=== PATIENT | female | born 1945 | race Caucasian/White ===

== ENCOUNTER 2021-01-23 12:45 | Observation (INO) | payer MEDICARE, OTHER, SELFPAY ==
[2021-01-23] VITALS (12 sets, daily range): BP systolic 99–141; BP diastolic 56–100; PULSE 77–115; RESP 15–18; TEMP 36.4–36.7; O2SAT 92–96; BMI 39.9; BMI 40.0; BMI 37.5
--- NOTE | 2021-01-23 12:51 | EKG12_ITS ---
Test Reason : Blood Pressure : / mmHG Vent. Rate : 094 BPM Atrial Rate : 094 BPM P-R Int : 152 ms QRS Dur : 062 ms QT Int : 362 ms P-R-T Axes : 062 000 031 degrees QTc Int : 452 ms Normal sinus rhythm Low Voltage QRS Confirmed by MARYBETH BENJAMIN, NADEGE ([id number]), film or videotape editor MARLENY MCGINNIS ([id number]) on 01/27/2021 8:53:33 AM Referred By: BHAVANA Confirmed By:NADEGE RUEDA MD
--- NOTE | 2021-01-23 12:52 | ED.DCSUM_ITS ---
History of Present Illness Chief Complaint: Chest Pain Informant: Patient Onset: Today Context: Sudden Onset Timing: Continuous Current Severity: Mild Maximum Severity: Moderate Narrative: Patient is a 75-year-old female with history of smoking and hypertension who presents to the emergency department with chest pain. Patient states she was in her normal state of health. 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 She states she turned to talk and had substernal chest heaviness. She states that it seemed to relax on its own, but then she was walking and became very short of breath with more heaviness. She states it radiated to her left shoulder. She does have history of anxiety, but states this felt very different. With anxiety, she states she will usually get palpitations but has never had pain like this. She denies any recent exertional symptoms. She has no documented history of coronary vascular disease. She denies orthopnea or leg edema. Prior similar symptoms: No Recent Illness/Hospitalization: No Past Medical History - Allergies and Home Meds Allergies/Adverse Reactions: Allergies bacitracin [From Neosporin ([id number])] Allergy (Verified 01/23/21 12:56) Rash neomycin [From Neosporin ([id number])] Allergy (Verified 01/23/21 12:56) Rash polymyxin B [From Neosporin ([id number])] Allergy (Verified 01/23/21 12:56) Rash Sulfa (Sulfonamide Antibiotics) Allergy (Verified 01/23/21 12:56) Rash BANDAIDS Allergy (Uncoded 01/23/21 12:56) Rash Prior records reviewed: Yes Past Medical History: - - Hypertension, anxiety Surgical History: noncontributory Review of Systems General: Denies: Chills, Fever, Sweats Eyes: Denies: Visual changes - bilaterally, Diplopia ENT: Denies: Rhinorrhea, Sore throat Cardiovascular: Reports: Chest pain. Denies: Palpitations Respiratory: Reports: Dyspnea, Paroxysmal nocturnal dyspnea. Denies: Cough, Dyspnea on exertion Gastrointestinal: Denies: Abdominal pain, Nausea, Vomiting, Diarrhea, Melena, Hematochezia Genitourinary: Denies: Dysuria, Hematuria, Frequency Musculoskeletal: Denies: Back pain, Extremity Pain Skin: Denies: Rash, Wounds Neurological: Denies: Headache, Weakness, Numbness Physical Exam Vital Signs/Narrative: Vital Signs Temp Pulse Resp BP Pulse Ox 01/23/21 12:46 97.5 F L 115 H 18 131/93 H 94 Inital Vital Signs reviewed: Yes General: Well nourished, Well developed, No Acute Distress Head: Normocephalic, Atraumatic Eyes: Perrl, EOMI ENT: Moist mucous membranes, No rhinorrhea Neck: Supple, Nontender Cardiovascular: Regular rate, Regular rhythm, No murmurs Respiratory: No distress, CTA bilaterally, Chest nontender Abdomen: Soft, Nontender, Nondistended, Normal bowel sounds Back: Nontender, Normal Inspection Extremities: Nontender, No edema Skin: Normal color, No rash Neurological: Alert, Oriented x3, Cranial nerves II-XII grossly intact, Normal Strength, Normal Sensation Psychological: Normal affect, Normal Mood Diagnostic/Tx/Re-eval Clinical Impression(s) from Imaging Studies Chest X-Ray 01/23/21 13:00 IMPRESSION: No acute abnormality is seen. Electronically Signed: Luis A Foreman MD at 13:20 EDT , Service support , Chest CTA 01/23/21 13:33 IMPRESSION: Normal CTA chest examination, without a demonstrated pulmonary embolism or arterial dissection. 2.3 cm x 3 cm hypodense nodule in the left adrenal gland. Electronically Signed: Luis A Foreman MD at 14:22 EDT , Service support , Abnormal Lab Results 01/23/21 01/23/21 01/23/21 12:53 12:53 12:53 WBC 7.7 RBC 5.40 Hgb 15.2 H Hct 47.5 H MCV 88.0 MCH 28.1 MCHC 32.0 RDW Std Deviation 50.8 H RDW Coeff of Joanna 15.8 H Plt Count 255 MPV 11.0 Immature Gran % (Auto) 0.300 Neut % (Auto) 61.3 Lymph % (Auto) 29.6 [place] % (Auto) 6.5 Eos % (Auto) 1.8 Baso % (Auto) 0.5 Absolute Neuts (auto) 4.7 Absolute Lymphs (auto) 2.27 Nucleated RBC % 0 D-Dimer Quant (PE/DVT) Sodium 142 Potassium 4.0 Chloride 110 H Carbon Dioxide 26.0 Anion Gap 6 BUN 15 Creatinine 0.81 Estim Creat Clear Calc 45.98 Est GFR (MDRD) Af Amer 89 Est GFR (MDRD) Non-Af 74 BUN/Creatinine Ratio 18.6 Glucose 112 H Calcium 8.8 Troponin I < 0.015 B-Natriuretic Peptide 12.8 01/23/21 01/23/21 12:53 13:14 WBC RBC Hgb Hct MCV MCH MCHC RDW Std Deviation RDW Coeff of Joanna Plt Count MPV Immature Gran % (Auto) Neut % (Auto) Lymph % (Auto) [place] % (Auto) Eos % (Auto) Baso % (Auto) Absolute Neuts (auto) Absolute Lymphs (auto) Nucleated RBC % D-Dimer Quant (PE/DVT) Cancelled 1.61 H* Sodium Potassium Chloride Carbon Dioxide Anion Gap BUN Creatinine Estim Creat Clear Calc Est GFR (MDRD) Af Amer Est GFR (MDRD) Non-Af BUN/Creatinine Ratio Glucose Calcium Troponin I B-Natriuretic Peptide - Rhythm Strip Rhythm Strip: Sinus Tach Rate: 103 Ectopy: None - EKG Initial EKG Interpretation: No Acute Injury Pattern, Sinus Tachycardia, Non-Specific ST Changes Prior: No Prior - Medical Decision Making Patient presents to the emergency department chest heaviness and shortness of breath. Her symptoms were improved with nitro and fentanyl. She was initially diaphoretic, nauseated, with significant chest tightness. On arrival, she states that it is markedly improved. EKG was obtained. Was sinus tachycardia. There is no acute ischemia. Patient had already received aspirin. She underwent metabolic work-up. Her current initial cardiac enzymes are negative. I did order Nitropaste for chest which seemed to make her more comfortable. Her D-dimer was elevated and with her persistent tachycardia, I did obtain CTA. This was negative for acute process. Given the patient's age and risk factor, along with her concerning story for chest pain, I do feel that she would benefit from admission. The patient has a heart score of 6. She will be admitted at this time. Impression 1. Chest pain
--- NOTE | 2021-01-23 13:00 | RAD_ITS ---
STUDY: X-RAY CHEST REASON FOR EXAM: Female, 75 years old. Chest pain TECHNIQUE: Single AP portable view of the chest. COMPARISON: None. FINDINGS: EKG electrodes are seen. The lungs are clear and expanded. There is no demonstrated pleural abnormality. Normal size heart. Normal mediastinum and fuentes. Normal visualized pulmonary arteries. There is atherosclerotic tortuosity of the aortic arch and descending thoracic aorta. There are diffuse degenerative changes of the visualized thoracic spine. Normal visualized ribs, clavicles, and shoulders. There is no demonstrated abnormality of the visualized soft tissue structures of the upper abdomen. RAD/Chest 1 View (Portable) IMPRESSION: No acute abnormality is seen. Electronically Signed: Luis A Foreman MD at 13:20 EDT , Service support ,
[2021-01-23 13:03] LABS: Absolute Lymphocyte Count 2.27 X10^3/uL (0.83-4.51); Absolute Neutrophil Count 4.7 X10^3/uL (2.0-7.7); Basophil# 0.04 X10^3/uL; Basophil% 0.5 % (0-1); Eosinophil# 0.14 X10^3/uL; Eosinophils% 1.8 % (0-5); Hematocrit 47.5 % (37-47); Hemoglobin 15.2 g/dL (12.0-15.0); Lymphocyte # 2.27 X10^3/ul (0.83-4.51); Lymphocyte % 29.6 % (19-41); Mean Corpuscular Hgb 28.1 pg (27.0-32.0); Monocyte% 6.5 % (0-10); NRBC Flagged by Analyzer 0 % (0-5); Neutrophil % 61.3 % (47-70); Platelet Count 255 K/mm3 (150-450); RBC Distribution Width CV 15.8 % (11.6-14.6); RBC Distribution Width SD 50.8 fl (35.1-43.9); White Blood Count 7.7 K/mm3 (4.4-11.0)
[2021-01-23] MEDS: Nitroglycerin Oint 1 INCH PACKET TRANSDERM. (13:07)
[2021-01-23 13:17] LABS: Anion Gap 6 (5-15); BUN 15 mg/dL (7-18); BUN/Creat Ratio 18.6 RATIO (10-20); Calcium,Total 8.8 mg/dL (8.5-10.1); Chloride 110 mmol/L (98-107); Creatinine, Serum 0.81 mg/dL (0.55-1.02); EST Glomerular Filtration Rate 74 mL/min (>60); Est Glom Filt Rate - Afr Amer 89 mL/min (>60); Estimated Creatinine Clearance 45.98 ml/min; Glucose 112 mg/dL (74-106); Sodium Level 142 mmol/L (136-145)
[2021-01-23 13:27] LABS: BNP,B-Type NATRIURETIC PEPTIDE 12.8 pg/mL (0-100)
[2021-01-23 13:31] LABS: D-Dimer Quantitative (DVT/PE) 1.61 FEU/ug/m (0.27-0.49)
--- NOTE | 2021-01-23 13:33 | CT_ITS ---
STUDY: CTA CHEST REASON FOR EXAM: Female, 75 years old. Chest pain, hypoxia. History of asthma. RADIATION DOSAGE (If Supplied By Facility): CTDIvol = ( 12.39 ) mGy, DLP = ( 463.26 ) mGycm TECHNIQUE: The examination was performed with the intravenous administration of IV 100mL Isovue-370. Post-processing of the angiographic images was performed, with multiplanar reformation and 3D reconstruction. Individualized dose optimization techniques were used for this CT. COMPARISON: None. FINDINGS: Normal enhancement of the main pulmonary artery and right and left pulmonary arteries. Normal enhancement of the bilateral peripheral pulmonary arteries. There is no demonstrated pulmonary embolism. There is atherosclerotic calcification of the aortic arch with tortuosity. There is no demonstrated aortic dissection. There are calcifications of the coronary arteries. Normal mediastinum. Normal hilar regions. Normal visualized trachea and bronchi. The lungs are well expanded. Normal pulmonary parenchyma. Normal pleura. Normal chest wall structures. There are degenerative changes of thoracic spine. There is a 2.3 cm x 3 cm hypodense nodule in the left adrenal gland. This is suggestive of an adrenal adenoma. Small sliding hiatal hernia. CT/CTA Chest W/WO Contrast IMPRESSION: Normal CTA chest examination, without a demonstrated pulmonary embolism or arterial dissection. 2.3 cm x 3 cm hypodense nodule in the left adrenal gland. Electronically Signed: Luis A Foreman MD at 14:22 EDT , Service support ,
[2021-01-23] MEDS: Ondansetron 4 MG/2 ML Vial IV (14:24)
--- NOTE | 2021-01-23 14:49 | PCM.HP.STD ---
Problem List (1) Chest pain Status: Acute (2) Hypertension Status: Chronic History of Present Illness Date of Admission: 01/23/21 Chief Complaint: Chest pain. The patient is a 75 year old F with past medical history as mentioned above presented to the emergency room because of chest pain. Patient stated that she was at the [employer] today, sitting in a chair and started complaining of left-sided chest pain, sudden onset, described initially as needle sensation and it was 9 out of 10 in severity and radiates to her left shoulder. She stood up after she is done and she went to drive her car. She started having chest heaviness on the left side, continued to have needle sensation on the left side of her chest, associated with shortness of breath and nausea. After she arrived to the ED, she received sublingual nitro and her chest pain now is gone. In the emergency department, she was tachycardic, afebrile, other vital signs were stable. Routine blood work was unremarkable. EKG revealed sinus tachycardia with PVCs, no acute ischemic changes. Troponin was negative as well as BNP. Chest x-ray showed no acute findings. D-dimer was elevated so CTA chest done which showed no PE or dissection, no other acute chest findings. CTA chest revealed incidental left adrenal gland nodule. She is being admitted for chest pain for evaluation. Past Medical History Past Medical History (Chronic Problems): Chronic Problems Hypertension (Chronic) Allergies bacitracin [From Neosporin ([id number]-[id number])] Allergy (Verified 01/23/21 12:56) Rash neomycin [From Neosporin (fal-ame-hsoov)] Allergy (Verified 01/23/21 12:56) Rash polymyxin B [From Neosporin (gdq-piq-bewms)] Allergy (Verified 01/23/21 12:56) Rash Sulfa (Sulfonamide Antibiotics) Allergy (Verified 01/23/21 12:56) Rash BANDAIDS Allergy (Uncoded 01/23/21 12:56) Rash Home Medications: Ambulatory Orders Medication Instructions Recorded Amlodipine [Norvasc] 5 mg PO DAILY 01/23/21 Lisinopril [Zestril] 20 mg PO DAILY 01/23/21 Surgical History: total hip arthroplasty, - - section x2. 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 Denies: Light Headedness, Orthopnea, Palpitations, Paroxysmal Noc. Dyspnea, Syncope Respiratory: Reports: Shortness of Breath. Denies: Cough, Hemoptysis, Pleuritic Pain, Sputum production, Wheezing Gastrointestinal: Denies: Abdominal Pain, Constipation, Diarrhea, Nausea, Vomiting Genitourinary: Denies: Dysuria, Frequency, Hematuria Musculoskeletal: Denies: Arm Pain, Back Pain, Foot Pain Skin: Denies: Dryness, Rash Neurological: Denies: Balance problems, Blurred vision, Double vision, Slurred speech, Confusion, Headaches, Incoordination Psychiatric: Denies: Anxiety, Depression Endocrine: Denies: Change in Body Habitus, Polydipsia, Polyuria VTE Information - Inpt Only VTE Present on Admission: No VTE Mechan Device Prophylaxis: None VTE Pharm Prophylaxis ordered?: Yes - Physical Exam Vitals/I&O's: Vital Signs Temp Pulse Resp BP Pulse Ox 97.5 F L 77 17 115/73 94 01/23/21 12:46 01/23/21 14:31 01/23/21 14:31 01/23/21 14:31 01/23/21 14:31 Oxygen Delivery Method Room Air Weight: 211 lb 10.3 oz Body Mass Index (BMI) 39.9 General: Alert, Oriented x3, Cooperative, No apparent distress HEENT: Atraumatic, PERRLA, EOMI, Normocephalic Oral: Moist Mucosa, No Gingival or Mucosal Lesions/ Ulcerations Neck: Supple, No JVD, Negative Carotid Bruits, Trachea Midline, Thyroid Normal Size and Texture Lungs: Clear to auscultation, Normal air movement, No rhonchi, No wheeze, No rales Cardiovascular: Regular rate, Regular Rhythm, Normal S1, Normal S2, PMI Normal Abdomen: Bowel Sounds Present, Soft, Non Tender, Non-Distended, No Hepato-splenomegaly, Obese Extremities: No clubbing, No cyanosis, No edema Skin: No rashes, No breakdown Lymphatic: No Cervical, Supraclavicular, or Inguinal Adenopathy Neurological: Cranial nerves II-XII grossly intact, Motor Exam 5/5 strength throughout Psych/Mental Status: Normal Affect, Appropriate, Alert and oriented to time, place, person, mood and affect Laboratory Results 01/23/21 12:53: WBC 7.7, RBC 5.40, Hgb 15.2 H, Hct 47.5 H, MCV 88.0, MCH 28.1, MCHC 32.0, RDW Std Deviation 50.8 H, RDW Coeff of Joanna 15.8 H, Plt Count 255, MPV 11.0, Immature Gran % (Auto) 0.300, Neut % (Auto) 61.3, Lymph % (Auto) 29.6, Victoria % (Auto) 6.5, Eos % (Auto) 1.8, Baso % (Auto) 0.5, Absolute Neuts (auto) 4.7, Absolute Lymphs (auto) 2.27, Nucleated RBC % 0 01/23/21 12:53: Sodium 142, Potassium 4.0, Chloride 110 H, Carbon Dioxide 26.0, Anion Gap 6, BUN 15, Creatinine 0.81, Estim Creat Clear Calc 45.98, Est GFR (MDRD) Af Amer 89, Est GFR (MDRD) Non-Af 74, BUN/Creatinine Ratio 18.6, Glucose 112 H, Calcium 8.8, Troponin I < 0.015 01/23/21 12:53: B-Natriuretic Peptide 12.8 01/23/21 12:53: D-Dimer Quant (PE/DVT) Cancelled 01/23/21 13:14: D-Dimer Quant (PE/DVT) 1.61 H* Clinical Impression(s) from Imaging Studies Chest X-Ray 01/23/21 13:00 IMPRESSION: No acute abnormality is seen. Electronically Signed: Luis A Foreman MD at 13:20 EDT , Service support , Chest CTA 01/23/21 13:33 IMPRESSION: Normal CTA chest examination, without a demonstrated pulmonary embolism or arterial dissection. 2.3 cm x 3 cm hypodense nodule in the left adrenal gland. Electronically Signed: Luis A Foreman MD at 14:22 EDT , Service support , Current Medications Sodium Chloride (0.9% Saline Lock 10 Ml Syringe) 10 - 40 ml IV UD PRN PRN Reason: SALINE FLUSH Assessment/Plan All Active Problems Chest pain (Acute) This is a 75 years old female patient presented to the emergency room because of chest pain and she is being admitted for evaluation. #1 chest pain: Risk factor of age, ex-smoker and hypertension. No family history of premature CAD. EKG revealed sinus tachycardia, no acute segment changes. D-dimer was elevated and CTA chest showed no PE or dissection, no other acute findings apart from left adrenal incidentaloma. Plan: Admit to PCU for observation, cardiac monitoring, serial cardiac enzymes, sublingual nitro as needed, Tylenol as needed, gentle IV fluids for hydration, Zofran as needed, nuclear stress test tomorrow morning if cardiac enzymes are negative. #2 adrenal incidentaloma: CTA chest revealed left adrenal nodule measuring 2.3 x 2 cm. Plan: Serum cortisol, renin aldosterone ratio, serum catecholamines, recommend follow-up with PCP as outpatient. #3 hypertension: Blood pressure stable, continue Norvasc and lisinopril. #4 DVT prophylaxis: Subcu Lovenox. This note was generated with [employer] dictation software. It may contain incorrect words, spelling, and punctuation that were not noted in checking the note before signing. OBSV E&M: 64000 Initial observation care L3
--- NOTE | 2021-01-23 15:03 | ED.RN ---
Patient had lower BP upon returning from CTA. 99SBP Patient's bp has come down slowly since nitro applied. She is also started to get her nausea back. Talked to DR Huang and approved fluids IV 125 and zofran.
[2021-01-23] MEDS: 0.9% Normal Saline 1,000 ML 75 ML IV (15:41)
[2021-01-23 16:58] LABS: Cholesterol 214 mg/dL (200); High Density Lipoprotein 46 mg/dL; Thyroid Stim Hormone (TSH) 0.58 uIU/mL (0.358-3.74); Triglycerides 123 mg/dL; Very Low Density Lipoprotein 25 mg/dL (5-40)
--- NOTE | 2021-01-23 17:49 | EKG12_ITS ---
Test Reason : CP Blood Pressure : / mmHG Vent. Rate : 112 BPM Atrial Rate : 112 BPM P-R Int : 144 ms QRS Dur : 068 ms QT Int : 330 ms P-R-T Axes : 048 000 033 degrees QTc Int : 450 ms Sinus tachycardia with frequent Premature ventricular complexes Inferior infarct , age undetermined Abnormal ECG Confirmed by MORA BENJAMIN, TENZIN ([id number]), primer expeditor and drier DEVIKA BESS ([id number]) on 01/28/2021 9:07:35 AM Referred By: OTILIA/KENDRICK Confirmed By:VILMA VELAZCO MD
[2021-01-24 02:12] VITALS: BP 100/54; PULSE 82; RESP 16; TEMP 36.8; O2SAT 93
[2021-01-24 03:40] VITALS: PULSE 90
[2021-01-24 06:45] VITALS: PULSE 92
[2021-01-24 06:46] VITALS: BP 120/76; PULSE 89; RESP 18; TEMP 36.8; O2SAT 93
[2021-01-24] MEDS: Aspirin E.C. 81 MG Tablet PO (06:53)
[2021-01-24] MEDS: Lisinopril 20 MG Tablet PO (06:54)
--- NOTE | 2021-01-24 10:47 | DCINST_ITS ---
- Discharge Diagnoses Current Active Problems: Current Active and Chronic Problems Chest pain (Acute) Hypertension (Chronic) You will use the following diet at home:: No restrictions Your food should be the consistency of: Regular Your liquids should be the consistency of: Regular/Thin Discharge Activity: Return to Normal Activity Allergies/Adverse Reactions: Allergies bacitracin [From Neosporin ([id number]-[id number])] Allergy (Verified 01/23/21 12:56) Rash neomycin [From Neosporin ([id number]-awv-agrsg)] Allergy (Verified 01/23/21 12:56) Rash polymyxin B [From Neosporin (zhz-ocd-mpukd)] Allergy (Verified 01/23/21 12:56) Rash Sulfa (Sulfonamide Antibiotics) Allergy (Verified 01/23/21 12:56) Rash BANDAIDS Allergy (Uncoded 01/23/21 12:56) Rash Medications to take at Discharge Amlodipine [Norvasc] 5 mg PO DAILY 01/23/21 Lisinopril [Zestril] 20 mg PO DAILY 01/23/21 Primary Care Physician: SARIKA MARTINEZ [Other] Please follow up with your Primary Care Physician in: Within the next 2 weeks Test Results: Test results from this visit will be discussed in further detail at your follow- up appointment, if applicable. Proposed Discharge Date: 01/24/21
--- NOTE | 2021-01-24 10:57 | STRESSREP ---
Stress Test Report Date: 01-24-2021 Procedure: Pharmacologic stress nuclear imaging study Indications: Chest pain Consent: Per the patient Procedure: The patient underwent pharmacologic (Regadenoson 0.4mg ) evaluation with a peak heart rate of 116 beats per minute (79%predicted maximal heart rate) and a peak blood pressure of 160/82 mmHg. The baseline ECG demonstrated sinus rhythm. The peak pharmacologic ECG demonstrated no obvious ECG changes. There were no cardiac dysrhythmias pretest, during pharmacologic infusion, or recovery. There was no complaint of chest discomfort during pharmacologic infusion or recovery. The examination was discontinued secondary to completion of protocol. Impression: 1. Pharmacologic (Regadenoson) evaluation 2. Peak pharmacologic ECG with no obvious ECG changes. 3. There were no cardiac dysrhythmias pretest, during pharmacologic infusion, or recovery. 4. Nuclear images pending Myocardial perfusion imaging study: Technique: The patient was injected with 10.3 millicuries of technetium 99m Cardiolite and subsequently rest SPECT Cardiolite nuclear imaging was obtained in the horizontal long, vertical long, and short axis views. The patient underwent pharmacologic (Regadenoson) evaluation with a peak heart rate of 116 beats per minute (79% percent predicted maximal heart rate) and a peak blood pressure of 160/82 mmHg. The patient was injected with 34.1 millicuries of technetium 99m Cardiolite and subsequently stress SPECT Cardiolite nuclear imaging was obtained in the horizontal long, vertical long, and short axis views. A gated Cardiolite study at peak stress was obtained. Interpretation: Rest and stress SPECT Cardiolite nuclear imaging status post realignment, normalization, and attenuation correction demonstrate relative uniform tracer uptake and myocardial perfusion appearing within normal limits. There are no myocardial perfusion deficits appreciated on the resting or stress polar map images. There is end systolic thickening and brightening. The gated Cardiolite study demonstrates myocardial thickening and inward wall motion. The reported LVEF is 84%. Impression: 1. Rest and stress SPECT Cardiolite nuclear imaging demonstrate relative uniform tracer uptake and myocardial perfusion appearing within normal limits. 2. The gated Cardiolite study reports an LVEF of 84%. This note was generated with [employer] software. It may contain incorrect words, spelling, and punctuation that were not noted in checking the note before signing.
[2021-01-24 11:26] VITALS: BP 136/73; PULSE 95; RESP 14; TEMP 36.6; O2SAT 97
--- NOTE | 2021-01-24 11:29 | DS.PCM_ITS ---
<Eleno Sauceda - Last Filed: 01/24/21 11:29> Discharge Date and Diagnosis - Problem List Patient Problems: Active and Suspected Problems Chest pain (Acute) Date of Admission: 01/23/21 Date of Discharge: 01/24/21 - Primary Discharge Diagnosis Acute Problems: Active Problems Chest pain (Acute) - Secondary Discharge Diagnosis Chronic Problems: Chronic Problems Hypertension (Chronic) Hospital Course and Treatment Imaging Results: 01/24/21 05:55 Nuclear Stress Test - Chemical [NM] AM (NON MEDS) Clinical Impression(s) from Imaging Studies Chest X-Ray 01/23/21 13:00 IMPRESSION: No acute abnormality is seen. Electronically Signed: Luis A Foreman MD at 13:20 EDT , Service support , Chest CTA 01/23/21 13:33 IMPRESSION: Normal CTA chest examination, without a demonstrated pulmonary embolism or arterial dissection. 2.3 cm x 3 cm hypodense nodule in the left adrenal gland. Electronically Signed: Luis A Foreman MD at 14:22 EDT , Service support , Procedures: Nuclear stress test Summary of Care Provided: This is a 75 years old female patient who presented to the ED on 01/23/2021 with a chief complaint of chest pain. Patient was subsequently admitted for unspecified chest pain/ACS rule out. While in the ED was found that the patient's D-dimer was elevated, CT-A demonstrated no PE or arterial dissection. A 2.3 cm x 3 cm hypodense nodule was appreciated on the left adrenal gland. This nodule is not of acute concern, appropriate labs were drawn, it is recommended the patient follow-up with her primary care provider in regards to this nodule. Nuclear stress test on 01/24/2021 demonstrated normal myocardial p erfusion and an LVEF of 84%. Patient will be discharged today. 1) Chest pain: EKG revealed sinus tachycardia, no acute segment changes. D- dimer was elevated and CTA chest showed no PE or dissection, with other findings noted above. Troponins not elevated throughout cycle. Nuclear stress test on 01/24/2021 was unremarkable. Chest pain resolved from admission and was responsive to Nitroglycerin patch. Follow-up with primary care provider within the next 2 weeks 2) Adrenal incidentaloma: CT-A appreacated on nodule on the left adrenal gland. Appropriate serum cortisol, renin aldosterone ratio, serum catecholamines, drawn and it is recommended that patient follow-up with primary care provider within the next 2 weeks. 3) Hypertension: Norvasc and lisinopril continued on discharge Patient seen by Eleno Sauceda PA-C, under the supervision of Dr. Pascual. Patient Problems: Active and Suspected Problems Chest pain (Acute) Subjective: Patient is a pleasant 75-year-old female who is comfortably resting in bed, alert and oriented x3. Patient reports resolution of her chest pain on admission. Denies shortness of breath, palpitations, fever, N/V/D, chills. - Physical Exam Vitals/I&O's: Vital Signs Temp Pulse Resp BP Pulse Ox 98.2 F 89 18 120/76 93 01/24/21 06:46 01/24/21 06:46 01/24/21 06:46 01/24/21 06:46 01/24/21 06:46 Oxygen Delivery Method Room Air Weight: 198 lb 6.656 oz Body Mass Index (BMI) 37.5 Intake and Output for Last 24 Hours 01/22/21 01/23/21 01/24/21 23:59 23:59 23:59 Intake Total 360 / 360 1000 / 1000 Balance 360 / 360 1000 / 1000 General: Alert, Oriented x3, Cooperative HEENT: Atraumatic, PERRLA, EOMI, Normocephalic Neck: Supple, No JVD, Negative Carotid Bruits Lungs: Clear to auscultation, Normal air movement Cardiovascular: Regular rate, No murmurs Abdomen: Bowel Sounds Present, Soft, Non Tender Extremities: No edema, Capillary Refill Less than 3 Seconds Skin: No rashes, No breakdown Musculoskeletal: No Tenderness to Palpation of Joints or Extremities Neurological: Cranial nerves II-XII grossly intact Psych/Mental Status: Normal Affect, Appropriate Laboratory Results 01/23/21 12:53: WBC 7.7, RBC 5.40, Hgb 15.2 H, Hct 47.5 H, MCV 88.0, MCH 28.1, MCHC 32.0, RDW Std Deviation 50.8 H, RDW Coeff of Joanna 15.8 H, Plt Count 255, MPV 11.0, Immature Gran % (Auto) 0.300, Neut % (Auto) 61.3, Lymph % (Auto) 29.6, Giles % (Auto) 6.5, Eos % (Auto) 1.8, Baso % (Auto) 0.5, Absolute Neuts (auto) 4.7, Absolute Lymphs (auto) 2.27, Nucleated RBC % 0 01/23/21 12:53: Sodium 142, Potassium 4.0, Chloride 110 H, Carbon Dioxide 26.0, Anion Gap 6, BUN 15, Creatinine 0.81, Estim Creat Clear Calc 45.98, Est GFR (MDRD) Af Amer 89, Est GFR (MDRD) Non-Af 74, BUN/Creatinine Ratio 18.6, Glucose 112 H, Calcium 8.8, Troponin I < 0.015 01/23/21 12:53: B-Natriuretic Peptide 12.8 01/23/21 12:53: D-Dimer Quant (PE/DVT) Cancelled 01/23/21 13:14: D-Dimer Quant (PE/DVT) 1.61 H* 01/23/21 15:57: Triglycerides 123, Cholesterol 214 H, LDL Cholesterol 143 H, VLDL Cholesterol 25, HDL Cholesterol 46, TSH 0.58 01/23/21 15:57: Cortisol 8.20 01/23/21 15:57: Renin Pending, Aldosterone Pending, Plas Tot Catecholamine Pending, Dopamine Pending, Epinephrine Pending, Norepinephrine Pending 01/23/21 15:57: Troponin I < 0.015 01/23/21 18:43: Troponin I < 0.015 Current Medications Acetaminophen (Acetaminophen 325 Mg Tablet) 650 mg PO Q6H PRN PRN PRN Reason: Pain Score 1-10/Temp > 100.7 F Amlodipine Besylate (Amlodipine 5 Mg Tablet) 5 mg PO DAILY [facility] Aspirin (Aspirin E.C. 81 Mg Tablet) 81 mg PO DAILY@0800 [facility] Last Admin: 01/24/21 06:53 Dose: 81 mg Documented by: Enoxaparin Sodium (Enoxaparin 40 Mg/0.4 Ml Syringe) 40 mg SC DAILY [facility] Lisinopril (Lisinopril 20 Mg Tablet) 20 mg PO DAILY [facility] Last Admin: 01/24/21 06:54 Dose: 20 mg Documented by: Nitroglycerin (Nitroglycerin (Inpatient Use) 0.4 Mg Tab.Subl) 0.4 mg SL Q5M PRN PRN Reason: CHEST PAIN Ondansetron HCl (Ondansetron 4 Mg/2 Ml Vial) 4 mg IV Q8H PRN PRN PRN Reason: NAUSEA/VOMITING Senna/Docusate Sodium (Senna/Docusate Sodium 1 Tablet) 2 tablet PO BID PRN PRN PRN Reason: Constipation Zolpidem Tartrate (Zolpidem Tartrate 5 Mg Tablet) 5 mg PO QHS PRN PRN PRN Reason: INSOMNIA Discharge Diet: No Restrictions Discharge Activity: Return to Normal Activity Home Medications: Medications to take at Discharge Amlodipine [Norvasc] 5 mg PO DAILY 01/23/21 Lisinopril [Zestril] 20 mg PO DAILY 01/23/21 Primary Care Physician: SARIKA MARTINEZ [Other] Please follow up with your Primary Care Physician in: Within the next 2 weeks Disposition: Home Minutes spent on discharge:: 35 Patient Condition:: Good Medical Necessity - Tobacco Use Smoking Status: Former smoker Tobacco Use: Cigarettes Meaningful Use Info Meaningful Use Diagnoses (Choose all that apply): None applicable <Reena Pascual - Last Filed: 01/24/21 16:30> Discharge Date and Diagnosis - Primary Discharge Diagnosis Acute Problems: Active Problems Chest pain (Acute) - Secondary Discharge Diagnosis Chronic Problems: Chronic Problems Hypertension (Chronic) Hospital Course and Treatment Summary of Care Provided: This patient was seen in conjunction with OLIVIA Thakur. I have independently interviewed and examined the patient and reviewed pertinent historical, laboratory, and other data. Please refer to OLIVIA Thakur's note for his patient's presentation, findings, and recommendations. I have reviewed and his note and concur with his documentation 75-year-old female with past medical history of hypertension, obesity who comes in with complaints of chest pain, left-sided that started while she was at a [employer] salon. She describes it as severe needle sensation, 9 out of 10, radiates to the left shoulder associated with nausea and shortness of breath. Chest pain got relieved with nitro. In the emergency department, her vitals were stable. EKG shows sinus tachycardia with PVCs. Troponins were negative. Chest x-ray was unremarkable. D-dimer was elevated, CT of the chest showed no acute PE. CT of the chest showed an incidental left adrenal gland nodule; this measures 2.3 cm x 3 cm hypodense nodule. Work-up for adrenal incidentaloma was done with serum cortisol, renin, aldosterone, serum catecholamines. Cortisol was normal, TSH w as normal, rest of the tests were pending at time of discharge. She was monitored on the telemetry floor, her troponins were trended with no remarkable changes. She underwent stress test that was unremarkable. At time of being seen, patient denied any new complaints. She denied any chest pain or dizziness or palpitation. Follow-up with your primary care doctor within 1 week. Physical Exam: Gen: Comfortable, not pale, not jaundiced, well hydrated CVS:HS I +II, regular, no murmurs RESP: CTA GI: BS present and normal, soft, nontender, no palpable organs EXT:No edema - Physical Exam Vitals/I&O's: Vital Signs Temp Pulse Resp BP Pulse Ox 97.8 F 95 14 136/73 H 97 01/24/21 11:26 01/24/21 11:26 01/24/21 11:26 01/24/21 11:26 01/24/21 11:26 Oxygen Delivery Method Room Air Weight: 90 kg Body Mass Index (BMI) 37.5 Intake and Output for Last 24 Hours 01/22/21 01/23/21 01/24/21 23:59 23:59 23:59 Intake Total 360 / 360 1000 / 1000 Balance 360 / 360 1000 / 1000 Laboratory Results 01/23/21 15:57: Triglycerides 123, Cholesterol 214 H, LDL Cholesterol 143 H, VLDL Cholesterol 25, HDL Cholesterol 46, TSH 0.58 01/23/21 15:57: Cortisol 8.20 01/23/21 15:57: Troponin I < 0.015 01/23/21 18:43: Troponin I < 0.015 OBSV E&M: [id number] Observation care discharge
--- NOTE | 2021-01-24 11:29 | PHA.DC.MR ---
Pharmacy Service has performed discharge medication reconciliation for this patient. No new medications at time of admission. Medications reviewed are from previously reported home medications. Home Medications Amlodipine [Norvasc] 5 mg PO DAILY 01/23/21 Lisinopril [Zestril] 20 mg PO DAILY 01/23/21 The patient's discharge medication list was reviewed for discrepancies and discrepancies were resolved.
== END 2021-01-24 10:47 | disposition home or self-care (01) ==
LOC: ED 13:12 → PCU 01-24 06:42
PROVIDERS: Admitting Provider Hospitalist; Emergency Provider Emergency Medicine; PCP Family Medicine; Visit Provider Internal Medicine
DX: R07.89 Other chest pain (principal); R06.02 Shortness of breath; I10 Essential (primary) hypertension; Z79.899 Other long term (current) drug therapy; Z87.891 Personal history of nicotine dependence; E27.8 Other specified disorders of adrenal gland; R22.2 Localized swelling, mass and lump, trunk; E66.9 Obesity, unspecified; Z68.37 Body mass index [BMI] 37.0-37.9, adult; R00.0 Tachycardia, unspecified
CPT/HCPCS: 36415; 71045; 71275; 78452; 80048; 80061; 82088; 82384; 82533; 83880; 84244; 84443; 84484; 85025; 85379; 93005; 93017; 96361; 96374; 99218; 99285; A9500; J7030; Q9967; A4216; G0378; J2405; J2785